=== PATIENT | female | born 1995 | race American Indian/Alaskan Native ===

== ENCOUNTER 2017-10-06 01:13 | Emergency (ER) | payer MEDICAID ==
[2017-10-06 01:27] VITALS: O2SAT 100
[2017-10-06] MEDS: Albuterol 0.083% Inhal Sol (2.5 mg/3 mL) UD INH SCH (02:55)
[2017-10-06] MEDS ORDERED: Albuterol 0.083% Inhal Sol (2.5 mg/3 mL) UD ONE (02:59)
--- NOTE | 2017-10-06 03:49 | C.PDOC ---
History Of Present Illness Pt with c/o of generalized body aches, cough, chest congestion x 1week. Today with reported SOB, chest tightness. Pt denies fever, recent travel or sick contact Time Seen by Provider: 10/06/17 01:32 Chief Complaint (Nursing): Shortness Of Breath History Per: Patient History/Exam Limitations: no limitations Initiating Event: Upper Respiratory Illness Quality: Tightness Associated Symptoms: Other (dry cough). denies: Fever, Productive Cough, Dizziness Past Medical History Vital Signs: Last Vital Signs Temp 97.3 F L 10/06/17 01:19 Pulse 83 10/06/17 01:19 Resp 18 10/06/17 01:27 BP 119/73 10/06/17 01:19 Pulse Ox 100 10/06/17 03:55 - Medical History PMH: No Chronic Diseases Surgical History: Tonsillectomy Family History: States: Unknown Family Hx - Social History Hx Alcohol Use: No Hx Substance Use: No - Immunization History Hx Tetanus Toxoid Vaccination: No Hx Influenza Vaccination: No Hx Pneumococcal Vaccination: No Review Of Systems Constitutional: Negative for: Fever, Chills ENT: Positive for: Nose Congestion. Negative for: Ear Pain, Throat Pain Respiratory: Positive for: Cough, Shortness of Breath, Other (chest congestion) Neurological: Negative for: Weakness, Numbness Physical Exam - Physical Exam Appears: Well, Non-toxic, No Acute Distress Skin: Normal Color Eye(s): bilateral: Normal Inspection, EOMI Nose: Normal, No Discharge Oral Mucosa: Moist Throat: Normal, No Erythema Neck: Normal Cardiovascular: Rhythm Regular Respiratory: No Decreased Breath Sounds, No Accessory Muscle Use, Rhonchi, Wheezing (exp) Neurological/Psych: Oriented x3 ED Course And Treatment O2 Sat by Pulse Oximetry: 100 Pulse Ox Interpretation: Normal - Radiology CXR Interpretation: Yes: No Acute Disease. No: Infiltrates Progress Note: Pt received albuterol nebs x 2, prednisone PO. Pt reports some improvement after meds and is in NAD , VSS. Pt is stable for discharge. Pt will follwo up with PMD and understood all return precautions. Disposition - Disposition Referrals: Non [facility] Provider, [Primary Care Provider] - Disposition: HOME/ ROUTINE Disposition Time: 03:52 Condition: STABLE Additional Instructions: Increase PO fluids Take medications as prescribed fOLLOW UP WITH PMD Return to Er IF WORSE Prescriptions: Albuterol HFA [Ventolin HFA 90 mcg/actuation (8 g)] 2 puff IH [id number] #1 inhaler Benzonatate [Tessalon Perles] 100 mg PO TID #20 sgl Cetirizine HCl [Zyrtec] 10 mg PO DAILY #20 capsule Ibuprofen [Motrin] 600 mg PO Q6H #20 tab Instructions: Acute Bronchitis (ED) Forms: [facility] (Romansh), Work Excuse - Clinical Impression Clinical Impression: Bronchitis
[2017-10-06 04:09] VITALS: BP 90/60; PULSE 90; RESP 20; TEMP 97.6
--- NOTE | 2017-10-06 08:43 | RAD ---
HISTORY: Shortness of breath COMPARISON: No prior. TECHNIQUE: Chest PA and lateral FINDINGS: LUNGS: No focal infiltrate or effusion. Bibasilar breast shadows. PLEURA: No significant pleural effusion identified. No pneumothorax apparent. CARDIOVASCULAR: Normal. OSSEOUS STRUCTURES: No significant abnormalities. VISUALIZED UPPER ABDOMEN: Normal. OTHER FINDINGS: None. IMPRESSION: No active disease.
== END 2017-10-06 04:09 | disposition home or self-care (01) ==
LOC: SUPCPDRO 01:13 → C.ER 01:13
DX: J40 Bronchitis, not specified as acute or chronic (principal)

== ENCOUNTER 2017-12-28 00:52 | Emergency (ER) | payer MEDICAID, OTHER ==
[2017-12-28] MEDS ORDERED: Sodium Chloride 0.9% 1,000 ML IV ONE (01:00)
--- NOTE | 2017-12-28 01:11 | C.PDOC ---
Time Seen by Provider: 12/28/17 01:11 Chief Complaint (Nursing): Abdominal Pain Past Medical History Vital Signs: Last Vital Signs Temp 97.8 F 12/28/17 01:05 Pulse 86 12/28/17 01:05 Resp 18 12/28/17 01:05 BP 103/74 12/28/17 01:05 Pulse Ox 96 12/28/17 01:05 Surgical History: Tonsillectomy Family History: States: Unknown Family Hx - Social History Hx Alcohol Use: No Hx Substance Use: No - Immunization History Hx Tetanus Toxoid Vaccination: No Hx Influenza Vaccination: No Hx Pneumococcal Vaccination: No ED Course And Treatment O2 Sat by Pulse Oximetry: 96 Disposition Counseled Patient/Family Regarding: Studies Performed, Diagnosis - Disposition Disposition Time: 01:11
[2017-12-28] MEDS ORDERED: Sodium Chloride 0.9% 1,000 ML ONE (01:21)
--- NOTE | 2017-12-28 02:11 | C.PDOC ---
History Of Present Illness 22 y/o female with hx ?endometriosis, ovarian cysts, irregular menses for last 2 months (shorter than usual) c/o right pelvic pain intermittently tonight with cramping and nausea that started earlier. menses started 2 days ago, pt took nothing for pain. ). Time Seen by Provider: 12/28/17 01:11 Chief Complaint (Nursing): Abdominal Pain History Per: Patient History/Exam Limitations: no limitations Onset/Duration Of Symptoms: Days (1) Current Symptoms Are (Timing): Still Present Location Of Pain/Discomfort: RLQ Associated Symptoms: Nausea. denies: Chest Pain, Constipation, Urinary Symptoms Past Medical History Reviewed: Historical Data, Nursing Documentation, Vital Signs Vital Signs: Last Vital Signs Temp 97.8 F 12/28/17 06:11 Pulse 81 12/28/17 06:11 Resp 16 12/28/17 06:11 BP 112/75 12/28/17 06:11 Pulse Ox 96 12/28/17 07:10 - Medical History Other PMH: endometriosis? fibroids Surgical History: Tonsillectomy Family History: States: Unknown Family Hx - Social History Hx Alcohol Use: No Hx Substance Use: No - Immunization History Hx Tetanus Toxoid Vaccination: No Hx Influenza Vaccination: No Hx Pneumococcal Vaccination: No Review Of Systems Constitutional: Negative for: Fever, Chills Cardiovascular: Negative for: Chest Pain Respiratory: Negative for: Cough, Shortness of Breath Gastrointestinal: Positive for: Nausea, Abdominal Pain. Negative for: Vomiting , Diarrhea Skin: Negative for: Rash Neurological: Negative for: Weakness, Numbness Physical Exam - Physical Exam Appears: Non-toxic, Other (uncomfortable) Skin: Warm, Dry Head: Atraumatic, Normacephalic Gastrointestinal/Abdominal: Bowel Sounds, Soft, Tenderness (right pelvic and suprapubic area, mild voluntary guarding. no rebound) Back: No CVA Tenderness Neurological/Psych: Oriented x3, Normal Speech, Normal Cognition ED Course And Treatment - Laboratory Results Result Diagrams: 12/28/17 02:16 12/28/17 02:16 O2 Sat by Pulse Oximetry: 96 Medical Decision Making Medical Decision Making: right low quad/pelvic pain- labs, ua upreg, ct abdomen. 6 am, ct with hypodense lesion mid pelvis 5x6x7 cm; normal appy. pt to go for transvaginal ultrasound. Disposition - Disposition Disposition Time: 07:10 Condition: GOOD Forms: [employer] ([place]) - Clinical Impression Clinical Impression: Pain, pelvic, female Physician Patient Turnover Patient Signed Over To: Kaity Morales Handoff Comments: follow up ultrasound and dispo accordingly
[2017-12-28 02:19] LABS: BASO # 0.1 K/uL (0.0-0.2); EOS # 0.3 K/uL (0.0-0.7); EOS % 4.8 % (0.0-4.0); HEMOGLOBIN 11.6 g/dL (11.0-16.0); LYMPH # 3.1 K/uL (1.0-4.3); LYMPH % 49.2 % (20.0-40.0); MEAN CELL VOLUME 83.9 fL (81.0-99.0); MEAN CORPUSCULAR HEMOGLOBIN 28.3 pg (27.0-31.0); MEAN CORPUSCULAR HGB CONC 33.7 g/dL (33.0-37.0); MEAN PLATELET VOLUME 9.9 fL (7.2-11.7); MONO # 0.4 K/uL (0.0-0.8); MONO % 6.3 % (0.0-10.0); NEUT # 2.4 K/uL (1.8-7.0); NEUT % 38.7 % (50.0-75.0); RBC 4.11 Mil/uL (3.80-5.20); WHITE BLOOD COUNT 6.2 K/uL (4.8-10.8)
[2017-12-28 02:25] LABS: SQUAMOUS EPITHIAL 7 /hpf (0-5); URINE BILIRUBIN NEGATIVE (NEGATIVE); URINE CLARITY Hazy (Clear); URINE COLOR Yellow (YELLOW); URINE GLUCOSE (UA) NORMAL (Normal); URINE LEUKOCYTE ESTERASE NEG Leu/uL (Negative); URINE NITRATE NEGATIVE (NEGATIVE); URINE PROTEIN NEGATIVE (NEGATIVE); URINE UROBILINOGEN NORMAL mg/dL (0.2-1.0)
[2017-12-28 02:27] LABS: URINE BLOOD TRACE (NEGATIVE)
[2017-12-28 02:30] LABS: HCG,QUALITATIVE URINE NEGATIVE (NEGATIVE)
[2017-12-28 02:35] LABS: ALB/GLOB RATIO 1.2 (1.0-2.1); ALBUMIN 3.8 g/dL (3.5-5.0); ALT/SGPT 20 U/L (9-52); AST/SGOT 26 U/L (14-36); BLOOD UREA NITROGEN 13 mg/dL (7-17); CALCIUM 8.9 mg/dl (8.6-10.4); GFR AFRICAN-AMERICAN > 60; GFR NON-AFRICAN AMERICAN > 60; LIPASE 153 U/L (23-300)
[2017-12-28] MEDS ORDERED: Iohexol 240 (50 ml) PO ONE (03:05)
[2017-12-28] MEDS ORDERED: Iohexol 240 (50 ml) ONE (03:15)
[2017-12-28] MEDS ORDERED: Iodixanol 320 MG/ML 100 ML BOTTLE IV ONE (04:41)
--- NOTE | 2017-12-28 05:39 | CT ---
EXAM: CT Abdomen and Pelvis With Intravenous Contrast CLINICAL HISTORY: 22 years old, female; Pain; Abdominal pain; Localized; Right lower quadrant (rlq); Additional info: Rlq pain TECHNIQUE: Axial computed tomography images of the abdomen and pelvis with intravenous contrast. All CT scans at this facility use one or more dose reduction techniques, viz.: automated exposure control; ma/kV adjustment per patient size (including targeted exams where dose is matched to indication; i.e. head); or iterative reconstruction technique. Coronal and sagittal reformatted images were created and reviewed. CONTRAST: 100 mL of [id number] administered intravenously. COMPARISON: No relevant prior studies available. FINDINGS: Lower thorax: Few pulmonary nodules, up to 0.3 cm. Linear atelectasis/scarring RIGHT middle lobe. ABDOMEN: Liver: Unremarkable. No mass. Gallbladder and bile ducts: No calcified stones. No ductal dilation. Pancreas: No ductal dilation. No mass. Spleen: No splenomegaly. Adrenals: No mass. Kidneys and ureters: No mass. No hydronephrosis. Stomach and bowel: No definite mural thickening. No obstruction. Appendix: Normal caliber. No inflammation. PELVIS: Bladder: Incomplete distention, limiting evaluation. Reproductive: Lobulated uterus with several masses, largest up to 5.9 cm. 5.3 x 7.8 x 6.5 cm hypodense lesion within midline pelvis, possibly related to right adnexa. Normal left ovary. ABDOMEN and PELVIS: Intraperitoneal space: Trace free fluid within pelvis. No free air. Bones/joints: No acute fracture. Soft tissues: Unremarkable. Vasculature: Unremarkable. No aneurysm. Lymph nodes: No pathologically enlarged lymph nodes. IMPRESSION: 1. Pelvic lesion, indeterminate. Recommend ultrasound. 2. Probable fibroid uterus. 3. Pulmonary nodules. Pulmonary nodules. For low-risk patients, no follow-up is necessary. For high-risk patients (smoking history or other known risk factors) an optional CT at 12 months could be performed. 4. Incidental/non-acute findings are described above.
[2017-12-28 08:02] VITALS: RESP 18; O2SAT 100
--- NOTE | 2017-12-28 10:56 | US ---
HISTORY: right intermittent pelvic pain, history of cysts. Menstrual status: LMP January 22, 2018. COMPARISON: December 28, 2017. Summary of findings on the comparison examination: Pelvic lesion indeterminate recommend ultrasound CT abdomen and pelvisNone available. TECHNIQUE: Transabdominal, transvaginal. Real -time technique with 2D, duplex and color Doppler. FINDINGS: UTERUS: Measures 4.6 x 6.0 x 10 cm. Large, anteverted. Sub serosal fibroid in the fundus 2.6 x 3.2 x 3.3 cm. Sub serosal fibroid to the right of the midline 6 x 5.5 x 6.5 cm. ENDOMETRIUM: Measures 8.1 mm in diameter. Trace fluid in the endometrial canal, otherwise unremarkable study CERVIX: No cervical abnormality identified. RIGHT OVARY: Cystic structure occupies the entire right adnexa 3.9 x 7.2 x 7.2 cm. A normal right ovary is not visualized LEFT OVARY: Measures 2 x 3.4 x 3.8 cm. No solid mass. Normal flow. FREE FLUID: No significant free fluid noted. OTHER FINDINGS: None. IMPRESSION: Enlarged myomatous uterus. Cystic mass right adnexa which corresponds to the findings in the cul-de-sac on recent CT scan.
[2017-12-28 10:57] VITALS: BP 115/71; PULSE 75; TEMP 98.2
== END 2017-12-28 10:57 | disposition home or self-care (01) ==
LOC: C.ER 00:52
DX: R10.2 Pelvic and perineal pain (principal); D25.9 Leiomyoma of uterus, unspecified
CPT/HCPCS: 74177; 76830; 76856; 80053; 81001; 83690; 84703; 85025; 96361; 96374; 99285; J1885; J7040; Q9966; Q9967